=== PATIENT | male | born 1950 | race Caucasian/White ===

== ENCOUNTER → 2016-05-18 | Outpatient (REF) | payer MEDICARE ==
[~2016-05-18] MED LIST: AMLO5TAB2 PO; BENA25CA2 PO; BISO5TAB2 PO; FLOM5CAP PO; FURO40TA2 PO; INSUDET SC; INSULANT SC; LASI40TA PO; LISI-538 PO; METF750T PO
[2016-05-19 11:38] LABS: ALBUMIN 3.2 GM/DL (3.2-5.2); ALBUMIN/GLOBULIN RATIO 0.94 (1.00-1.93); BILIRUBIN,TOTAL 0.2 MG/DL (0.2-1.0); CALCIUM LEVEL 8.4 MG/DL (8.8-10.2); CREATININE FOR GFR 1.36 MG/DL (0.70-1.30); POTASSIUM SERUM 4.9 MEQ/L (3.5-5.1); TOTAL PROTEIN 6.6 GM/DL (6.4-8.2)
== END ==
LOC: M SFHCCLAY 13:38
PROVIDERS: ATTEND Family Medicine
DX: E11.42 Type 2 diabetes mellitus with diabetic polyneuropathy (principal); E78.2 Mixed hyperlipidemia

== ENCOUNTER → 2016-07-19 | Outpatient (REF) | payer MEDICARE ==
[2016-07-19 18:13] LABS: ALBUMIN 3.3 GM/DL (3.2-5.2); ALBUMIN/GLOBULIN RATIO 0.89 (1.00-1.93); BILIRUBIN,TOTAL 0.2 MG/DL (0.2-1.0); CALCIUM LEVEL 8.4 MG/DL (8.8-10.2); CREATININE FOR GFR 1.64 MG/DL (0.70-1.30); GLOMERULAR FILTRATION RATE 45.1 (>49); POTASSIUM SERUM 4.8 MEQ/L (3.5-5.1)
== END ==
LOC: M SFHCCLAY 11:36
PROVIDERS: ATTEND Family Medicine
DX: E11.42 Type 2 diabetes mellitus with diabetic polyneuropathy (principal)

== ENCOUNTER → 2016-07-26 | Outpatient (CLI) | payer MEDICARE ==
--- NOTE | 2016-07-26 16:33 | REP ---
CT of the chest without IV contrast: Comparisons are 05/13/2015 and 01/29/2016. There is a 14 mm pleural-based nodule in the posterior deep sulcus of the right lung, unchanged from both prior studies. There is chronic scarring and atelectasis in the left lower lobe, unchanged. There is a new noncalcified 12 mm nodule in the apex of the right upper lobe, not present previously. There is an infiltrate in the apex of the left upper lobe as an interval change. There is chronic circumferential pleural thickening accompanied by volume loss of the left hemithorax. This is unchanged. There is a 7 mm nodule in the right middle lobe, unchanged from both prior studies. There is a 10 mm nodule in the right middle lobe, unchanged from both prior studies. There is a 6 mm nodule in the right middle lobe, unchanged from both prior studies. Impression: There is a new lung nodule in the apex of the right upper lobe on image 15, not present on the comparison studies. There is a new infiltrate superiorly in the left lung. There are multiple other lung nodules as described, unchanged from the prior studies. There is chronic parenchymal scarring and atelectasis inferiorly in the left lung. There is volume loss and circumferential pleural thickening in the left lung. These findings are unchanged. Signed by Jake Carroll MD 07/26/2016 04:25 P
== END ==
LOC: M RAD 14:50
PROVIDERS: ATTEND Internal Medicine Pulmonary Disease
DX: R91.8 Other nonspecific abnormal finding of lung field (principal)

== ENCOUNTER → 2016-11-11 | Outpatient (CLI) | payer MEDICARE ==
[~2016-11-11] MED LIST changes: +ALBU17IN INH; +ATOR40TA75 PO; +BENA25CA4 PO; +BREO1INH3 INH; +LANTINJ4 SC; +METF-415 PO
--- NOTE | 2016-11-12 08:57 | REP ---
CT STUDY OF THE CHEST WITHOUT CONTRAST: HISTORY: Follow-up pulmonary nodule. Comparison is made with prior CT studies dated as follows: July 26, 2016, January 29, 2016, and May 13, 2015. FINDINGS: There is a slightly spiculated noncalcified soft tissue nodule in the right upper lobe measuring 1.9 cm in greatest diameter today. Most recently in July of 2016, this measured 1.2 cm. This continues to grow and must be considered suspicious. There are multiple other stable small subcentimeter pulmonary nodules in the right lung which are unchanged from May 13, 2015 prior study. There is also a 1.3 cm pleural-based pulmonary nodule in the posterior lung gutter in the right lower lobe, which is also stable from May 13, 2015. There are fibrothorax changes on the left with areas of spiral atelectasis and pleural thickening and pleural calcification. There is overall volume loss in the left hemithorax. These changes are stable as well. There is no evidence of adrenal lesion. No hilar or mediastinal mass or adenopathy is observed. No pleural effusion is seen. The visualized upper abdominal structures are unremarkable. No bony destructive lesion is appreciated. IMPRESSION: 1. Suspicious enlarging 1.9 cm right upper lobe. Histologic sampling is recommended. 2. Multiple other stable noncalcified pulmonary nodules in the right lung. 3. 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 Signed by Robbie Patel MD 11/12/2016 09:30 A
== END ==
LOC: M RAD 15:56
PROVIDERS: ATTEND Internal Medicine Pulmonary Disease
DX: R91.8 Other nonspecific abnormal finding of lung field (principal)

== ENCOUNTER → 2016-11-24 | Outpatient (REF) | payer MEDICARE ==
[2016-11-24 17:35] LABS: ALBUMIN 3.4 GM/DL (3.2-5.2); ALBUMIN/GLOBULIN RATIO 0.94 (1.00-1.93); BILIRUBIN,TOTAL 0.2 MG/DL (0.2-1.0); CALCIUM LEVEL 8.7 MG/DL (8.8-10.2); CREATININE FOR GFR 1.64 MG/DL (0.70-1.30); GLOMERULAR FILTRATION RATE 45.1 (>49)
[2016-11-24 17:42] LABS: POTASSIUM SERUM 5.4 MEQ/L (3.5-5.1)
== END ==
LOC: M SFHCCLAY 13:52
PROVIDERS: ATTEND Family Medicine
DX: E11.42 Type 2 diabetes mellitus with diabetic polyneuropathy (principal)

== ENCOUNTER → 2016-12-06 | Day surgery (SDC) | payer MEDICARE ==
[~2016-12-06] VITALS: Ht 185.4 cm; Wt 113.4 kg
[~2016-12-06] MED LIST changes: +EPINEPHrine 1MG/10ML SYRINGE 1.5IN As Ordered ONE; +LIDOCAINE 1% SDV INJ 30 ML VIAL As Ordered ONE; +LIDOCAINE 2% INJ 100 MG/5 ML SDV (FOR ANES.) As Ordered ONE; +LIDOCAINE 4% INJ 5 ML AMP As Ordered ONE; +LIDOCAINE 4% TOPICAL SOLN 50 ML BTL As Ordered ONE; +LIDOCAINE VISCOUS 2% SOLN 15ML UDC As Ordered ONE; +LR 1,000 ML IV ONE; +LR 1,000 ML IV SCH; +METOCLOPRAMIDE INJ 10MG/2ML VIAL (J2765) As Ordered ONE; +METOCLOPRAMIDE INJ 10MG/2ML VIAL (J2765) IV PRN; +MIDAZOLAM INJ 2 MG/2 ML VIAL (J2250) As Ordered ONE; +ONDANSETRON 4MG/2ML VIAL (J2405) As Ordered ONE; +ONDANSETRON 4MG/2ML VIAL (J2405) IV PRN; +PHENYLephrine HCL 500 MCG/5 ML (100MCG/ML) SYRINGE (J2370) As Ordered ONE; +PROPOFOL 200 MG/20 ML VIAL As Ordered ONE; +ROCURONIUM BROMIDE 50 MG/5 ML VIAL/SYRINGE As Ordered ONE; +SUGAMMADEX SODIUM 500 MG/5 ML VIAL (BRIDION) As Ordered ONE; +THROMBIN SOLN 20,000 UNITS KIT As Ordered ONE; +dexameTHASONE 4 MG/ML 1ML VIAL (J1100) As Ordered ONE; +ePHEDrine SULFATE 25 MG/5 ML(5MG/ML) SYRINGE As Ordered ONE; +fentaNYL 100 MCG/2 ML INJECTION (J3010) IV PRN; +fentaNYL 250 MCG/5 ML INJECTION (J3010) As Ordered ONE
--- NOTE | 2016-12-06 08:31 | RO ---
DATE OF PROCEDURE: 12/06/2016 PREPROCEDURE DIAGNOSIS: Right upper lobe nodule. POSTPROCEDURE DIAGNOSIS: Right upper lobe nodule with chronic obstructive bronchitis. PROCEDURE: Fiberoptic bronchoscopy with washes, brushes and biopsy done under electromagnetic navigational bronchoscopy with fluoroscopy. SURGEON: Juan Luis Juan MD HEAD OF ENGLISH: ANESTHESIA: General ETT Informed consent was obtained prior to the procedure. OPERATIVE FINDINGS: 1. Endotracheal tube in good position. 2. Diffuse changes of chronic obstructive bronchitis. DESCRIPTION OF PROCEDURE: After the patient was identified and above anesthesia given, the fiberoptic bronchoscope was passed through the existing endotracheal tube. It was found to be in good position several centimeters above the marie. Cursory examination of both right and left lung were initially performed. All segments and subsegments of both lungs widely patent. Diffuse changes of chronic bronchitis were noted. Scant secretions were encountered and suctioned clear. The formal electromagnetic navigational procedure was then initiated. After all the anatomical landmarks were registered, the guide port was then passed to within millimeters of the existing lesion. Placement was confirmed via fluoroscopy. Under fluoroscopic guidance, multiple biopsies, as well as brushes were taken. The area was then lavaged. No significant bleeding was encountered. Scope was then withdrawn and the procedure terminated. Fluoroscopic examination immediately post procedure showed no evidence of pneumothorax and a chest x-ray was ordered for one hour post procedure. The patient was taken to the recovery room in good and stable condition. No immediate complications to anesthesia identified. [facility] CENTERPatty
--- NOTE | 2016-12-06 09:08 | REP ---
C-ARM VIEW CHEST: C-arm view of the chest is performed during bronchoscopy procedure. Tube is seen overlying the right upper lobe. 2 minutes and 10 seconds fluoroscopy time utilized for the procedure. Signed by Jake Garcia MD 12/06/2016 01:11 P
--- NOTE | 2016-12-06 09:34 | REP ---
PORTABLE CHEST: AP portable view of the chest is performed. COMPARISON: 05/10/2016 There is no pneumothorax. Ill-defined opacity is seen in the right apex. Chronic fibrotic changes are again seen in the lung bases. Cardiomediastinal silhouette is unchanged. IMPRESSION: No pneumothorax. Mild ill-defined opacity right apex. Signed by Jake Garcia MD 12/06/2016 01:11 P
[2016-12-06 10:00] VITALS: BP 145/68
== END | disposition home or self-care (01) ==
LOC: M SDC 06:20 → EDSTATUS 07:30
PROVIDERS: ATTEND Internal Medicine Pulmonary Disease
DX: C34.11 Malignant neoplasm of upper lobe, right bronchus or lung (principal); J44.9 Chronic obstructive pulmonary disease, unspecified; E11.9 Type 2 diabetes mellitus without complications; Z79.4 Long term (current) use of insulin; F17.210 Nicotine dependence, cigarettes, uncomplicated; R06.02 Shortness of breath
CPT/HCPCS: 31623; 31624; 31627; 31628; 71010; 76000; 87070; 87102; 87116; 87205; 87206; 88104; 88172; 88173; 88305; J1100; J2250; J2370; J2405; J2765; J3010

== ENCOUNTER → 2016-12-21 | Outpatient (CLI) | payer MEDICARE ==
[~2016-12-21] MED LIST changes: -EPINEPHrine 1MG/10ML SYRINGE 1.5IN As Ordered ONE; -LIDOCAINE 1% SDV INJ 30 ML VIAL As Ordered ONE; -LIDOCAINE 2% INJ 100 MG/5 ML SDV (FOR ANES.) As Ordered ONE; -LIDOCAINE 4% INJ 5 ML AMP As Ordered ONE; -LIDOCAINE 4% TOPICAL SOLN 50 ML BTL As Ordered ONE; -LIDOCAINE VISCOUS 2% SOLN 15ML UDC As Ordered ONE; -LR 1,000 ML IV ONE; -LR 1,000 ML IV SCH; -METOCLOPRAMIDE INJ 10MG/2ML VIAL (J2765) As Ordered ONE; -METOCLOPRAMIDE INJ 10MG/2ML VIAL (J2765) IV PRN; -MIDAZOLAM INJ 2 MG/2 ML VIAL (J2250) As Ordered ONE; -ONDANSETRON 4MG/2ML VIAL (J2405) As Ordered ONE; -ONDANSETRON 4MG/2ML VIAL (J2405) IV PRN; -PHENYLephrine HCL 500 MCG/5 ML (100MCG/ML) SYRINGE (J2370) As Ordered ONE; -PROPOFOL 200 MG/20 ML VIAL As Ordered ONE; -ROCURONIUM BROMIDE 50 MG/5 ML VIAL/SYRINGE As Ordered ONE; -SUGAMMADEX SODIUM 500 MG/5 ML VIAL (BRIDION) As Ordered ONE; -THROMBIN SOLN 20,000 UNITS KIT As Ordered ONE; -dexameTHASONE 4 MG/ML 1ML VIAL (J1100) As Ordered ONE; -ePHEDrine SULFATE 25 MG/5 ML(5MG/ML) SYRINGE As Ordered ONE; -fentaNYL 100 MCG/2 ML INJECTION (J3010) IV PRN; -fentaNYL 250 MCG/5 ML INJECTION (J3010) As Ordered ONE
--- NOTE | 2016-12-22 12:21 | REP ---
Whole body PET CT scan: Comparison is the PET CT scan dated 11/12/2015. There is also a comparison chest CT dated 11/11/2016. Whole body scan is performed from skull base to the upper thighs. Neck and supraclavicular areas: There are no hypermetabolic foci. Chest: There is a new 1.9 cm hypermetabolic focus in the apex of the right lung, corresponding to the nodule on the recent comparison CT of 11/11/2016. This was not present on the comparison PET scan. By the patient's known nodule in the deep posterior sulcus of the right lung is again identified. This nodule again demonstrates non hypermetabolic radiolabeling with a standard uptake value of 2.3. There are no other foci in the chest. Abdomen, pelvis and upper thighs: There are no hypermetabolic foci. Specifically, there are no adrenal or hepatic foci. There is nonspecific bowel radiolabeling. Impression: There is a new hypermetabolic focus in the apex of the right lung, corresponding to the nodule in this location on the comparison chest CT. There are no other hypermetabolic foci. The study is s performed with 10 mCi of F 18 FDG. Signed by Jake Carroll MD 12/22/2016 12:13 P
== END ==
LOC: M PLARAD 12:41
PROVIDERS: ATTEND Internal Medicine Pulmonary Disease
DX: R91.1 Solitary pulmonary nodule (principal)
CPT/HCPCS: 78815; A9552

== ENCOUNTER → 2017-01-31 | Outpatient (CLI) | payer MEDICARE ==
--- NOTE | 2017-02-03 08:59 | CPSTRESS ---
DATE OF STUDY: 01/31/2017 Under protocol, a complex pulmonary stress test was performed. All available data is reviewed. No continuous oxygen saturation titration accompanies the report, but the physician report attending the study does not note any significant desaturations during or after exercise. IMPRESSION: Symptom limited exercise test with a V.O2 max of 14 mL/kg or 65% of predicted adjusted body weight is noted. Data suggests a ventilatory limitation to exercise with evidence of flow limitation, as well as chest wall loading on the exercise portion of the flow volume tidal loops. Maximum heart rate of 128 or 83% of predicted with an oxygen (O2) pulse of 10, which is 63% of predicted. This is appropriate for the maximum workload achieved, which suggests no significant cardiovascular limitations. The ventilatory equivalents are elevated throughout exercise, which does suggest an increased pulmonary space. Again, no reported oxygen desaturations during or after exercise. Anaerobic threshold was reached and is 88% of the V.O2 max, which is consistent with his known ventilatory limitation. Normal lung auscultation was noted after exercise. No specific electrocardiogram (EKG) abnormalities. FINAL IMPRESSION: Decreased V.O2 max 14 mL/kg adjusted body weight with ventilatory limitation. V.O2 max of less than 15 does predict a higher risk for perioperative complications from the lung resection, but an O2 pulse of greater than 10 suggests no significant cardiovascular limitations.
== END ==
LOC: M CARPUL 08:39
PROVIDERS: ATTEND Thoracic Surgery (Cardiothoracic Vascular Surgery)
DX: R06.00 Dyspnea, unspecified (principal); J44.9 Chronic obstructive pulmonary disease, unspecified; C34.11 Malignant neoplasm of upper lobe, right bronchus or lung

== ENCOUNTER → 2017-02-15 | Outpatient (CLI) | payer MEDICARE ==
--- NOTE | 2017-02-15 18:53 | REP ---
CT of the chest without IV contrast for follow up of lung nodules: Comparisons are 11/11/2016 and 05/13/2015. There is a nodule in the apex of the right lung today measuring 22 ml. This measured 90 mm on 11/11/2016 and was not present on 05/13/2015. There are multiple other lung nodules, all stable and unchanged from 05/13/2015. On the following page as: 30 55 62 63 87. There are chronic fibrotic changes in the left hemithorax, stable and unchanged from 05/13/2015. The visualized unenhanced upper abdominal contents are unchanged. Impression: Lung nodules as described. Signed by Jake Carroll MD 02/15/2017 06:44 P
== END ==
LOC: M RAD 14:30
PROVIDERS: ATTEND Thoracic Surgery (Cardiothoracic Vascular Surgery)
DX: C34.11 Malignant neoplasm of upper lobe, right bronchus or lung (principal)

== ENCOUNTER → 2017-02-15 | Outpatient (CLI) | payer MEDICARE ==
[2017-02-15 13:40] LABS: ABG BASE EXCESS 1.2 (-2.0-2.0); ABG HCO3 26.2 MEQ/L (22.0-26.0); ABG PARTIAL PRESSURE CO2 43.4 mmHg (35.0-45.0); ABG PARTIAL PRESSURE O2 83.8 mmHg (75.0-100.0); ABG STANDARD HCO3 25.5 MEQ/L (22.0-26.0); ABG TOTAL CO2 27.6 MEQ/L (23.0-31.0); ABG pH (ARTERIAL) 7.399 UNITS (7.350-7.450)
[2017-02-15 14:14] LABS: MEAN CORPUSCULAR HEMOGLOBIN 25.8 pg (27.0-33.0); MEAN CORPUSCULAR HGB CONC 31.6 g/dl (32.0-36.5); MEAN CORPUSCULAR VOLUME 81.8 fl (80.0-96.0); RED CELL DISTRIBUTION WIDTH 15.1 % (11.5-14.5); WHITE BLOOD COUNT 8.7 10^3/uL (4.0-10.0)
[2017-02-15 14:21] LABS: INR 0.89
--- NOTE | 2017-02-15 15:15 | REP ---
PA and lateral chest: Comparisons are the portable chest dated 12/06/2078, PA and lateral chest 04/09/[address] of 11/11/2016. There is chronic parenchymal scarring and pleural adhesions inferolaterally in the left hemithorax, unchanged from 04/09/2015. There are no acute infiltrates or effusions. By CT the the patient has known multiple lung nodules. There is a nodule in the apex of the right lung that has been enlarging. I suspect this is faintly visible on the plain film study superimposed over the clavicle and anterior end of the right first rib. A cardiac size is normal. The efren, mediastinum, and bony thorax are unremarkable. Impression: No acute cardiopulmonary findings. Chronic parenchymal scarring and pleural adhesions inferiorly in the left lung. Known lung nodules, not visible on plain films with the exception that the enlarging nodule right apex is questionably visualized but partially obscured by the superimposed clavicle and anterior arch of the right first rib. Signed by Jake Carroll MD 02/15/2017 03:05 P
[2017-02-15 16:06] LABS: CALCIUM LEVEL 8.4 MG/DL (8.8-10.2); CREATININE FOR GFR 1.81 MG/DL (0.70-1.30); GLOMERULAR FILTRATION RATE 40.3 (>49); POTASSIUM SERUM 4.6 MEQ/L (3.5-5.1)
--- NOTE | 2017-02-15 20:24 | ECGEPIP ---
Stationary ECG Study [facility] Test Date: 2017-02-15 Pat Name: JOHN PAUL BRUCE Department: Room: - Gender: M Loftsman/Woman: [facility] : 1950 Requested By: Manuel Mckeon Order Number: [id number] Reading MD: Christopher Almeida Measurements Intervals [place] Rate: 86 P: 36 NH: 140 QRS: 65 QRSD: 95 T: -20 QT: 337 QTc: 404 Interpretive Statements SINUS RHYTHM WITH SINUS ARRHYTHMIA NONSPECIFIC T-WAVE ABNORMALITY SIMILAR 05/11/16 Electronically Signed On 02-15-2017 20:24:23 EDT by Christopher Almeida
== END ==
LOC: M ADMPAT 12:22
PROVIDERS: ATTEND Thoracic Surgery (Cardiothoracic Vascular Surgery)
DX: C34.90 Malignant neoplasm of unspecified part of unspecified bronchus or lung (principal); Z79.01 Long term (current) use of anticoagulants

== ENCOUNTER 2017-02-22 09:00 | Inpatient (IN) | payer MEDICARE ==
[2017-02-15 12:47] VITALS: BP 202/79
[~2017-02-22] VITALS: Ht 185.4 cm; Wt 117.9 kg
[2017-03-02] MEDS ORDERED: BUPIVACAINE LIPOSOME/PF 1.3% 20 ML VIAL (13.3MG/ML)(EXPAREL) As Ordered ONE (08:50)
[2017-03-02] MEDS ORDERED: BUPIVACAINE HCL 0.5% 10 ML VIAL As Ordered ONE (08:50)
[2017-03-02] MEDS ORDERED: CETACAINE SPRAY 20GM (FLOOR STOCK) As Ordered ONE (08:50)
[2017-03-02] MEDS ORDERED: MUPIROCIN 2% OINT 22 GM TUBE As Ordered ONE (08:50)
[2017-03-02] MEDS ORDERED: EMLA CREAM 5GM (LIDOCAINE/PRILOCAINE) As Ordered ONE (08:53)
[2017-03-02] MEDS ORDERED: LR 1,000 ML IV ONE (09:00)
[2017-03-02] MEDS ORDERED: MUPIROCIN 2% OINT 22 GM TUBE TOP ONE (09:00)
[2017-03-02] MEDS ORDERED: fentaNYL 100 MCG/2 ML INJECTION (J3010) As Ordered ONE (09:26)
[2017-03-02] MEDS ORDERED: MIDAZOLAM INJ 2 MG/2 ML VIAL (J2250) As Ordered ONE ×2 (09:26→11:43)
[2017-03-02] MEDS ORDERED: fentaNYL 100 MCG/2 ML INJECTION (J3010) IV ONE (10:15)
[2017-03-02] MEDS ORDERED: MIDAZOLAM INJ 2 MG/2 ML VIAL (J2250) IV ONE (10:15)
[2017-03-02] MEDS ORDERED: fentaNYL 250 MCG/5 ML INJECTION (J3010) As Ordered ONE (11:43)
[2017-03-02] MEDS ORDERED: PHENYLephrine HCL 500 MCG/5 ML (100MCG/ML) SYRINGE (J2370) As Ordered ONE (11:44)
[2017-03-02] MEDS ORDERED: LIDOCAINE 2% INJ 100 MG/5 ML SDV (FOR ANES.) As Ordered ONE (11:44)
[2017-03-02] MEDS ORDERED: SUGAMMADEX SODIUM 500 MG/5 ML VIAL (BRIDION) As Ordered ONE (11:44)
[2017-03-02] MEDS ORDERED: ROCURONIUM BROMIDE 50 MG/5 ML VIAL/SYRINGE As Ordered ONE (11:44)
[2017-03-02] MEDS ORDERED: ePHEDrine SULFATE 25 MG/5 ML(5MG/ML) SYRINGE As Ordered ONE (11:44)
[2017-03-02] MEDS ORDERED: ONDANSETRON 4MG/2ML VIAL (J2405) As Ordered ONE (11:45)
[2017-03-02] MEDS ORDERED: dexameTHASONE 4 MG/ML 1ML VIAL (J1100) As Ordered ONE (11:45)
[2017-03-02] MEDS ORDERED: PROPOFOL 200 MG/20 ML VIAL As Ordered ONE (11:45)
[2017-03-02] MEDS ORDERED: LR 1,000 ML IV SCH (12:30)
[2017-03-02] MEDS ORDERED: fentaNYL 100 MCG/2 ML INJECTION (J3010) IV PRN (12:30)
[2017-03-02] MEDS ORDERED: ONDANSETRON 4MG/2ML VIAL (J2405) IV PRN (12:30)
[2017-03-02] MEDS ORDERED: PERCOCET 5MG/325MG TAB PO PRN (12:30)
--- NOTE | 2017-03-02 12:43 | RO ---
DATE: 03/02/2017 PREPROCEDURE DIAGNOSIS: Squamous cell carcinoma, right upper lobe, stage I A [id number]. POSTPROCEDURE DIAGNOSIS: Squamous cell carcinoma, right upper lobe, stage I A [id number]. SURGEON: Manuel Barahona MD EMT INTERMEDIATE: PROCEDURE: Bronchoscopy and extended evaluation of one lung anesthesia. ANESTHESIA: DESCRIPTION OF PROCEDURE: The patient is a 66-year-old white male with a known right upper lobe squamous cell carcinoma, who is known to have very poor pulmonary function testing with an initial FEV1 of 1.39 and diffusion capacity 49%. He was advised to stop smoking and repeat pulmonary function tests showed an improvement in his FEV1 to 1.62, which was 45% of predicted, and a diffusion capacity which singh from 38% of predicted to 53% of predicted. He underwent cardiopulmonary exercise testing and his VO2 max oxygen consumption was 14 mL/kg/min, which is thought to be acceptable for a lung resection, albeit high risk. The final physiological test was then going to be his toleration of one lung anesthesia. Anesthesia therefore intubated him after I performed bronchoscopy, as discussed below, with a double lumen tube, and he was placed on volume control ventilation with a tidal volume of 480, which gave him peak pressures of 32 and 35 with plateau pressures a little bit less than that. On 90% FiO2, his oxygen saturation was still only between 75 and 78%. That was in the supine position. After approximately 45 minutes of adjusting and readjusting the ventilator and with Dr. Shaver of pulmonology also in consultation in the room, I decided that he was not going to be able to tolerate a one lung anesthetic and scored poorly for postoperative success. I therefore did not start the lobectomy, but stopped at the bronchoscopy. BRONCHOSCOPIC PROCEDURE: Under satisfactory general anesthesia and single lumen tube endotracheal intubation, bronchoscope was passed in the tracheobronchial tree. Bronchopulmonary segments had normal configuration and there was surprisingly little mucous. There were no endobronchial lesions. The scope was withdrawn, and the above physiologic testing of one lung anesthesia proceeded after intubation with a double lumen tube. The patient tolerated the procedure well and left the operating room in satisfactory condition to the recovery room.
[2017-03-02 13:00] VITALS: BP 127/60
--- NOTE | 2017-04-04 15:08 | DSES ---
DATE OF ADMISSION: 03/02/2017 DATE OF DISCHARGE: 03/02/2017 DISCHARGE DIAGNOSES: 1. Stage I squamous cell carcinoma right upper lobe. 2. Chronic obstructive pulmonary disease (COPD). 3. Hypoxia under one lung anesthesia. HOSPITAL COURSE: The operative note that explains the events in surgery is incorporated by reference. The patient is a 66-year-old white male with known right upper lobe squamous cell carcinoma who had known pulmonary function testing with an FEV1 of 1.39, and a diffusion capacity of 49%. He was advised to stop smoking and repeat pulmonary function tests showed improvement of his FEV1 to 1.62, which was 45% of predicted. Diffusion capacity singh from 38 to 53%. The patient was therefore taken to the operating room with the intent to undertake a right upper lobectomy, but prior to doing so, underwent double lumen endotracheal intubation as per protocol for lung surgery. I then gave him a 10 minute trial of one lung anesthesia. He continued to desaturate in the high 70s and low 80s, and therefore he was not operable from a technical point of view in regard to his lung function. I therefore cancelled the planned thoracotomy and the patient was discharged. He will be followed up in radiation therapy and medical oncology.
== END 2017-03-02 13:35 | disposition home or self-care (01) | DRG 182 ==
LOC: M SDC 03-02 08:39 → M OR 03-02 08:39 → UNDOADMIN 03-02 08:39 → EDSTATUS 03-02 09:00 → M RR INP 03-02 11:30 → UNDODISIN 03-02 13:35 → M SDC 03-02 13:35
PROVIDERS: ADMIT Thoracic Surgery (Cardiothoracic Vascular Surgery); ATTEND Thoracic Surgery (Cardiothoracic Vascular Surgery)
PROC: 0BJ08ZZ Inspection of Tracheobronchial Tree, Via Natural or Artificial Opening Endoscopic (ICD-10-PCS; principal; 2017-03-02 09:00)
DX: C34.11 Malignant neoplasm of upper lobe, right bronchus or lung (principal); J44.9 Chronic obstructive pulmonary disease, unspecified; R09.02 Hypoxemia; E11.21 Type 2 diabetes mellitus with diabetic nephropathy; I12.9 Hypertensive chronic kidney disease with stage 1 through stage 4 chronic kidney disease, or unspecified chronic kidney disease; M54.5 Low back pain; N18.9 Chronic kidney disease, unspecified

== ENCOUNTER → 2017-05-30 | Outpatient (REF) | payer MEDICARE ==
[2017-05-30 18:04] LABS: ALBUMIN 3.4 GM/DL (3.2-5.2); ALBUMIN/GLOBULIN RATIO 0.87 (1.00-1.93); ALKALINE PHOSPHATASE 98 U/L (45-117); ALT/SGPT 14 U/L (12-78); ANION GAP 5 MEQ/L (8-16); AST/SGOT 10 U/L (7-37); BILIRUBIN,TOTAL 0.2 MG/DL (0.2-1.0); BLOOD UREA NITROGEN 49 MG/DL (7-18); CALCIUM LEVEL 8.3 MG/DL (8.8-10.2); CARBON DIOXIDE LEVEL 30 MEQ/L (21-32); CHLORIDE LEVEL 106 MEQ/L (98-107); CHOLESTEROL LEVEL 136 MG/DL (<200); CHOLESTEROL RISK RATIO 3.487 (<5); CREATININE FOR GFR 2.01 MG/DL (0.70-1.30); GLOMERULAR FILTRATION RATE 35.6 (>49); GLUCOSE, FASTING 193 MG/DL (80-110); HDL CHOLESTEROL 39 MG/DL (>40); LDL CHOLESTEROL 73.6 MG/DL (<100); NON-HDL-C 97 MG/DL; POTASSIUM SERUM 4.8 MEQ/L (3.5-5.1); SODIUM LEVEL 141 MEQ/L (136-145); TOTAL PROTEIN 7.3 GM/DL (6.4-8.2); TRIGLYCERIDES LEVEL 117 MG/DL (<150)
[2017-05-30 18:08] LABS: ESTIMATED AVERAGE GLUCOSE 154 MG/DL (60-110)
== END ==
LOC: M SFHCCLAY 12:52
DX: E11.42 Type 2 diabetes mellitus with diabetic polyneuropathy (principal)
CPT/HCPCS: 80053

== ENCOUNTER → 2017-05-31 | Outpatient (REF) | payer MEDICARE ==
[2017-05-31 19:21] LABS: CREATININE, URINE 97.6 MG/DL; MAU/CREAT RATIO 929.3 MCG/MG (0.0-30.0)
== END ==
LOC: M SFHCCLAY 17:26
DX: E11.42 Type 2 diabetes mellitus with diabetic polyneuropathy (principal)
CPT/HCPCS: 82043

== ENCOUNTER → 2017-06-24 | Outpatient (REF) | payer MEDICARE ==
[2017-06-24 14:28] LABS: FERRITIN 6 NG/ML (26-388); IRON (FE) 40 UG/DL (65-175); PERCENT SATURATION 9.6 % (19.7-50.0); TOTAL IRON BINDING CAPACITY 415 UG/DL (250-450)
== END ==
LOC: M LAB REF 12:54
DX: D50.9 Iron deficiency anemia, unspecified (principal); N18.9 Chronic kidney disease, unspecified
CPT/HCPCS: 83550

== ENCOUNTER → 2017-07-25 | Outpatient (CLI) | payer MEDICARE | LOC: M RAD 14:49 | DX: J90 Pleural effusion, not elsewhere classified (principal) | CPT/HCPCS: 71046 ==

== ENCOUNTER 2017-08-04 12:59 | Outpatient (CLI) | payer MEDICARE ==
[2017-08-04] MEDS: IRON SUCROSE 25 MG in NS 50 ML IV (13:50)
[2017-08-04] MEDS: IRON SUCROSE 475 MG in NS 250 ML IV (15:19)
== END 2017-08-04 18:45 | disposition home or self-care (01) ==
LOC: M INFU 12:59
DX: D50.9 Iron deficiency anemia, unspecified (principal); I12.9 Hypertensive chronic kidney disease with stage 1 through stage 4 chronic kidney disease, or unspecified chronic kidney disease; E78.00 Pure hypercholesterolemia, unspecified; N18.3 Chronic kidney disease, stage 3 (moderate); M12.9 Arthropathy, unspecified; M54.9 Dorsalgia, unspecified; I49.9 Cardiac arrhythmia, unspecified; E11.9 Type 2 diabetes mellitus without complications; Z79.4 Long term (current) use of insulin; Z79.899 Other long term (current) drug therapy; Z91.013 Allergy to seafood; Z85.118 Personal history of other malignant neoplasm of bronchus and lung
CPT/HCPCS: J1756